=== PATIENT | female | born 1965 | race Caucasian/White ===

== ENCOUNTER 2016-09-05 06:08 | Day surgery (SDC) | payer MEDICAID, OTHER ==
[~2016-09-05] VITALS: Ht 152.4 cm; Wt 89.4 kg
[2016-09-05 07:22] LABS: ALBUMIN 3.3 g/dL (3.4-5.0); ANION GAP 12.6 (8-16); CALCIUM 8.4 mg/dL (8.5-10.1); CARBON DIOXIDE 27.2 mmol/L (21-32); CREATININE 0.8 mg/dL (0.6-1.3); POTASSIUM 3.8 mmol/L (3.5-5.1); TOTAL BILIRUBIN 0.3 mg/dL (0.0-1.0); TOTAL PROTEIN, SERUM 7.8 g/dL (6.4-8.2)
[2016-09-05] MEDS ORDERED: BUPIVACAINE-MPF/EPI 0.25% 30 ML VIAL INJ ONE (07:22)
[2016-09-05] MEDS ORDERED: ONDANSETRON 4 MG/2 ML VIAL ONE ×2 (08:10→10:09)
[2016-09-05] MEDS ORDERED: PROPOFOL 200 MG/20 ML VIAL IV ONE (08:10)
[2016-09-05] MEDS ORDERED: DEXAMETHASONE 4 MG/ML VIAL ONE (08:10)
[2016-09-05] MEDS ORDERED: SUCCINYLCHOLINE CHLORIDE 200 MG/10 ML VIAL IVP ONE (08:10)
[2016-09-05] MEDS ORDERED: DESFLURANE 240 ML BTL INH ONE (08:10)
[2016-09-05] MEDS ORDERED: ROCURONIUM 50 MG/5 ML VIAL IV ONE (08:10)
[2016-09-05] MEDS ORDERED: MIDAZOLAM 2 MG/2 ML VIAL ONE (08:23)
[2016-09-05] MEDS ORDERED: fentaNYL 0.05 MG/ML VIAL ONE (08:24)
[2016-09-05] MEDS ORDERED: ONDANSETRON 4 MG/2 ML VIAL IVP PRN (08:55)
[2016-09-05] MEDS: HYDROmorphone 1 MG/ML AMP IVP PRN ×4 (09:55→10:25)
[2016-09-05] MEDS ORDERED: NACL 0.9% 1,000 ML IV SCH (09:56)
[2016-09-05] MEDS ORDERED: ONDANSETRON 4 MG/2 ML VIAL IV PRN (10:00)
[2016-09-05] MEDS ORDERED: HYDROcodone/APAP 5/325 MG 1 TAB TAB PO PRN (10:00)
[2016-09-05] MEDS ORDERED: MORPHINE SULFATE 2 MG/ML SYR IVP PRN (10:00)
[2016-09-05] MEDS ORDERED: HYDROmorphone 1 MG/ML AMP IVP PRN (10:00)
[2016-09-05] MEDS ORDERED: MORPHINE SULFATE 4 MG/ML SYR IV PRN (10:00)
[2016-09-05] MEDS ORDERED: HYDROmorphone PFS 2 MG/ML SYR ONE (10:08)
== END 2016-09-05 13:25 | disposition home or self-care (01) ==
LOC: MDS 06:08 → MMU 06:10 → MDS 13:25
PROVIDERS: ATTEND Surgery
DX: K80.20 Calculus of gallbladder without cholecystitis without obstruction (principal); K66.0 Peritoneal adhesions (postprocedural) (postinfection); I12.9 Hypertensive chronic kidney disease with stage 1 through stage 4 chronic kidney disease, or unspecified chronic kidney disease; E11.22 Type 2 diabetes mellitus with diabetic chronic kidney disease; E78.5 Hyperlipidemia, unspecified; N18.9 Chronic kidney disease, unspecified; F03.90 Unspecified dementia, unspecified severity, without behavioral disturbance, psychotic disturbance, mood disturbance, and anxiety; I25.119 Atherosclerotic heart disease of native coronary artery with unspecified angina pectoris; K21.9 Gastro-esophageal reflux disease without esophagitis; M19.90 Unspecified osteoarthritis, unspecified site; E66.9 Obesity, unspecified; J45.909 Unspecified asthma, uncomplicated; Z90.710 Acquired absence of both cervix and uterus; Z98.890 Other specified postprocedural states; Z83.3 Family history of diabetes mellitus; Z82.49 Family history of ischemic heart disease and other diseases of the circulatory system; Z79.84 Long term (current) use of oral hypoglycemic drugs; Z79.899 Other long term (current) drug therapy; F17.210 Nicotine dependence, cigarettes, uncomplicated
CPT/HCPCS: 36415; 47562; 49329; 71010; 80053; 82374; 82948; 86886; 86900; 86901; 88304; 93005; J0330; J0690; J1100; J1170; J2250; J2405; J2704; J3010; J3490; J7030; J7060